=== PATIENT | male | born 1990 | race Caucasian/White ===

== ENCOUNTER → 2016-06-28 13:00 | Inpatient (IN) | payer OTHER ==
[2016-06-26 23:30] VITALS: BP 162/75
[2016-06-27] VITALS (23 sets, daily range): BP systolic 146–167; BP diastolic 60–97
--- NOTE | 2016-06-27 06:55 | DIAGNOSTIC IMAGING REPORT ---
PROCEDURE: XR CHEST 1 VIEW INDICATION: LEUKOCYTOSIS, initial encounter TECHNIQUE: Portable AP view 02:34 a.m. COMPARISON: None. FINDINGS: Lungs are clear. Heart and mediastinum are normal. Thorax is normal. IMPRESSION: 1. Negative chest.
--- NOTE | 2016-06-27 07:33 | HISTORY AND PHYSICAL ---
ADMITTED: 06/26/2016 CHIEF COMPLAINT: 1. Nausea, vomiting, abdominal pain HISTORY OF PRESENT ILLNESS: Information source, the patient himself. Reliability fair. A 26-year-old with a past medical history of type 1 diabetes on insulin therapy, history of substance abuse including heroin and marijuana, went to [facility] with a complaint of nausea, vomiting, diarrhea and abdominal pain. On arrival to hospital, he was found to have high blood sugar with the signs of diabetic ketoacidosis. Blood sugar levels were 473. Urine was positive for ketones. Anion gap was 14 which got worse over hours and his blood sugar went up to 511 and anion gap went up to 27. For that, he received IV hydration with normal saline. For nausea and vomiting, he got Zofran, Benadryl, Phenergan. For abdominal pain, he was given Dilaudid, ketorolac and Ativan. He was started on insulin drip and transferred to [facility] on the ICU for further management for non availability of beds at [facility]. In [facility], the patient continued to have abdominal pain and severe vomiting. MEDICAL/SURGICAL HISTORY: Significant for type 1 diabetes mellitus, substance abuse, including heroin and marijuana, colitis, depression, gastroesophageal reflux disease, sciatica, asthma, gastroparesis, Gilbert disease. Past surgical history: Cholecystectomy, fractured clavicle. Pts PCP: Dr. Clint Mata. MEDICATIONS: As per [facility] Emergency Department list: 1. Apidra 6 to 8 units subcutaneous before meals. 2. Lantus 40 units subcutaneous at bedtime. 3. Omeprazole 20 mg p.o. twice daily. 4. Zofran 4 mg. 5. Paroxetine 20 mg 1 tablet morning. 6. Phenergan 25 mg orally every 4 hours as needed for nausea and vomiting. 7. Ventolin HFA 90 mcg 2 puffs into mouth every 4 hours as needed. ALLERGIES: 1. METOCLOPRAMIDE. 2. PROCHLORPERAZINE. SOCIAL HISTORY: History of substance abuse. He says he injects heroin 1 to 2 grams every day and smokes marijuana. Last heroin use, yesterday morning. Marijuana, the day before yesterday. Denies smoking cigarettes. Denies alcohol use. FAMILY HISTORY: Grandmother and grandfather with history of diabetes. REVIEW OF SYSTEMS: Denies fevers, chills, sweats, weakness, malaise. Denies any pain in eyes, vision change, conjunctival inflammation, eyelid inflammation, redness. ENT: He denies any nasal discharge, nasal congestion, mouth pain, mouth swelling, throat pain, throat swelling. Denies any cough, shortness of breath, wheezing, hemoptysis, pleuritic pain. Denies any chest pain, palpitation, orthopnea, paroxysmal nocturnal dyspnea, edema. Complains of nausea, vomiting, abdominal pain, diarrhea. Denies any constipation. Denies melena, hematochezia. Denies any dysuria. Complains of urinary frequency. Denies incontinence, hematuria, or retention. Denies any back pain. Denies any weakness, numbness, change in his speech, confusion changes. PHYSICAL EXAMINATION: VITAL SIGNS: Pulse rate 109, respiratory rate 22, blood pressure 164/75, pulse oximetry 100 on room air. GENERAL: The patient is alert, awake, oriented x3, not in acute distress. HEENT: Head examination, normocephalic, atraumatic. Eyes: Pupils equal, reactive to light. Mucous membranes dry. LUNGS: Clear to auscultation. NECK: Supple. No JVD. CARDIOVASCULAR: Regular rate and rhythm. Normal S1 and S2. ABDOMEN: Soft, mildly tender. Bowel sounds present. No guarding. No rebound. No rigidity. EXTREMITIES: No edema. SKIN: No rashes. Tattoos all over the body present. No significant lesions. NEUROLOGIC: Normal exam. No lateralizing signs. LAB/IMAGING: Sodium 134, potassium 3.3, chloride 96, bicarbonate 14, BUN 24, creatinine 1.4, GFR more than 60. Glucose 326, calcium 8.2. Chemistry labs from [facility], date collected on 06/26/2016 at 6 p.m., sodium 129, potassium 4.1, chloride 88, bicarbonate 14, anion gap 27, glucose 511, BUN 22, creatinine 1.39. Liver function: Total protein 7.6, albumin 3.9, calcium 9.3, total bilirubin 1.3, alkaline phosphatase 157, ALT 17, AST 20. Blood cultures pending. Lactic acid 1.9, magnesium 1.7. Lactic acid on admission 1.9. WBC 19.7, hemoglobin 12.6, hematocrit 37, platelets 335, neutrophils 89.1%, granulocytes 0.7%, lymphocytes 5.5%, monocytes 4.4%. Imaging: Chest x-ray pending. IMPRESSION/PLAN: 1. Diabetic ketoacidosis without coma. Will start IV hydration with normal saline, additive KCL 20 mEq per 1 liter of normal saline at 250 mL per hour. Continue with insulin drip. Monitor blood sugar hourly. Monitor BMP q.6 hours. Monitor electrolytes. Replace electrolytes. Keep potassium more than 4. Keep n.p.o. Switch normal saline to D5 normal saline if blood sugar reaches to 200. Stop insulin drip once anion gap is closed. Give basal insulin 1 hour before stopping insulin drip. Control pain with Dilaudid, nausea and vomiting with Zofran and Phenergan. 2. Abdominal pain, nausea, and vomiting. IV hydration with normal saline. Zofran q.6 hourly. Phenergan p.r.n. Check lipase and amylase. Pain control with Dilaudid. 3. Substance abuse. Monitor for heroin withdrawal. Methadone 15 mg q.8 hours for now. Continue Dilaudid as needed. Ativan p.r.n. Symptomatic treatment with Zofran and Phenergan for nausea, vomiting, and abdominal pain. The patient is counseled about drug treatment program and he refuses to pursue it as he said he has failed in the past. 4. Leukocytosis. Urinalysis done at other hospital was negative for infection. Chest x-ray pending. Blood cultures pending. We will monitor for now. Check procalcitonin level. 5. Deep vein thrombosis prophylaxis. Lovenox. 6. Gastrointestinal prophylaxis. Proton pump inhibitor. 7. The patient's condition guarded and anticipated discharge in 3 to 4 days. 8. E/M coding, inpatient high, [id number].
--- NOTE | 2016-06-27 08:04 | Progress Note ---
Subjective General Note Date: June 27, 2016 Admission Date: Inderjit 2016 Hospital Day: 1 PCP: Unknown Status: Inpatient Advanced Directive: FULL CODE Room: 306 Brief History: The patient is a 26-year-old white male with a significant past medical history of type 1 diabetes mellitus, illicit drug use-heroin who presented to [facility] as a transfer from [facility] secondary to DKA, illicit drug use-heroin. Secondary to the above, the patient was admitted by Dr. Craven for further evaluation and treatment For other history present illness, past medical history, family history, social history, review of systems, and admission physical examination please see the patient's history and physical examination and ER visit note in the patient's medical record. Subjective: The patient states his status is somewhat improved. Withdrawal symptoms improved. Nausea much improved Patient requests: No specific other than adequate opiate replacement to prevent withdrawals Medications and Allergies Medications Current Medications Sig/Ehsan Start time Last Medication Dose Route Stop Time Status Admin Methadone HCl 10 MG TID 06/27 599 AC 06/27 PO 0549 Ondansetron HCl 4 MG Q6H 06/27 599 AC IV Pantoprazole Sodium 40 MG DAILY@00 06/27 0500 AC 06/27 IV 0549 Dextrose/Sodium 1,000 ML ASDIRECTED PRN 06/27 0400 AC 06/27 Chloride IV 0549 Hydromorphone HCl 1 MG Q3H PRN 06/27 0300 AC 06/27 IV 0349 Lorazepam 0.5 MG Q8H PRN 06/27 0300 AC 06/27 IV 0349 Acetaminophen 650 MG Q4H PRN 06/27 0015 AC PO Albuterol/Ipratropium 3 ML Q6H PRN 06/27 001 AC IN Docusate Sodium 250 MG BID PRN 06/27 001 AC PO Insulin Human Regular 100 UNITS ASDIRECTED 06/27 001 AC Sodium Chloride 100 ML IV Naloxone HCl 0.4 MG PRN PRN 06/27 001 AC IV Promethazine HCl See Dose Q8H 06/27 001 AC 06/27 Insts (1) IV 0102 Sodium Chloride/ 1,000 ML ASDIRECTED 06/27 14 AC 06/27 Electrolytes IV 0102 Dose Instructions: (1)Promethazine HCl: 12.5 - 25 MG Allergies Coded Allergies: Metoclopramide (Severe, 06/27/16) Prochlorperazine (From COMPAZINE) (Severe, 06/27/16) Physical Exam Vital Signs / I&Os Vital Signs Date Time Temp Pulse Resp B/P Pulse O2 O2 Flow FiO2 Ox Delivery Rate 06/27 0740 99.3 120 15 163/78 100 Room Air 06/27 0600 111 13 155/78 100 Room Air 06/27 0500 157/83 06/27 0400 103 21 160/81 100 06/27 0300 99.5 101 23 165/76 99 Room Air 06/27 0200 100 24 164/84 99 Room Air 06/27 0101 Room Air 06/27 0100 109 22 164/75 100 Room Air 06/27 0000 166/78 06/26 2330 120 14 162/75 100 Room Air I&O 06/27 0000 06/26 1600 06/26 0800 Intake Total Output Total 350 Balance -350 General Appearance Alert, Oriented X3, Cooperative, No acute distress Lungs Clear to auscultation Cardiovascular Regular rate and rhythm, Normal S1 and S2 Abdomen Normal bowel sounds, Soft, No tenderness Extremities No cyanosis, No clubbing, No edema Neurological Grossly normal Psych/Mental Status Mental status normal, Mood normal LAB Results Laboratory Tests 06/27 06/27 06/27 06/27 0530 0530 0040 K Blood Gas Sample Site RR Total CO2 (24.0 - 30.0 mmol/L) 16.8 ABG pH (7.35 - 7.45) 7.38 ABG pCO2 at Pt Temp (35 - 45 mmHg) 27.3 ABG pO2 at Pt Temp (80.0 - 100.0 mmHg) 99.2 ABG HCO3 (20.0 - 26.0 mmol/L) 16.0 ABG O2 Sat Calc/Kt (95.1 - 100.0 %) 98.8 ABG Base Excess (-6.0 - -6.0 mmol/L) -8.3 ABG Reduced Hgb (%) 1.2 ABG Carboxyhemoglobin (0.5 - 1.5 %) 1.5 ABG Methemoglobin (0.4 - 1.5 %) 0.1 Shelton Test YES Other Total Hgb (14.0 - 18.0 g/dL) 12.2 A-a O2 Gradient (7.0 - 14.0 mmHg) 19.2 Hgb O2 Saturation (95.0 - 100.0 %) 97.2 Respiration Rate (/MIN) 18 Vent Mode RA FiO2 (20 - 101 %) 21 Chemistry Plasma Sodium (136 - 145 mmol/L) 134 Plasma Potassium (3.5 - 5.1 mmol/L) 3.3 Plasma Chloride (98 - 107 mmol/L) 96 CO2 (Enzymatic) (21 - 32 mmol/L) 14 BUN (7 - 18 mg/dL) 24 Creatinine (0.6 - 1.3 mg/dL) 1.4 Est GFR ( Amer) (mL/min) >60 Est GFR (Non-Af Amer) (mL/min) >60 Glucose (70 - 110 mg/dL) 326 Plasma Calcium (8.5 - 10.1 mg/dL) 8.2 Amylase (25 - 115 U/L) 90 Lipase (73 - 393 U/L) 85 Procalcitonin Pending Microbiology Date/Time Procedure - Status Source Growth 06/27 0400 MRSA Screen - RECD NASAL Assessment and Plan Problem List 1. DKA (diabetic ketoacidoses) Plan -Status has steadily improved throughout the day. -Acidosis cleared with normal anion gap. No significant electrolyte abnormalities -Switch to subcutaneous insulin this p.m. -Advance diet as tolerated -Possible discharge in a.m. with improved status 2. Illicit drug use Status Chronic Onset Date Unknown Plan -Patient with history of heroin use 1-2 g per day -Place patient on replacement therapy in the form of methadone 20 mg by mouth every 6 hours -Referred to methadone treatment program/drug treatment program -Discharge planning contacted to a patient in locating rehabilitation program. 3. Opiate dependence Status Chronic Onset Date Unknown Plan See above Current status: Fair, improved Anticipated discharge date: Anticipated discharge in 1-2 days Anticipated discharge placement: Home with drug treatment program Patient care time: Time spent in chart review, patient interview, physical exam, CPOE, and care documentation: 25 minutes Visit to patient today: 1 Complexity of care: Moderate E&M Codes Rounding: Inpt-Moderate/[id number]
[2016-06-28] VITALS (8 sets, daily range): BP systolic 148–160; BP diastolic 78–90
[~2016-06-28] VITALS: Ht 180.3 cm; Wt 69.6 kg
--- NOTE | 2016-06-28 12:42 | Progress Note ---
Subjective General Pt. admitted with hyperglycemia iwth Hx of type I DM and heroin abuse. He has had blood sugars come down into usualy range. He feels he is doing well enough to go home. He is hoping to get into heroin Tx soon. Other ROS OK except restlessness due to heroin wikthdrawal. Physical Exam Vital Signs / I&Os Vital Signs Date Time Temp Pulse Resp B/P Pulse O2 O2 Flow FiO2 Ox Delivery Rate 06/28 1109 98.8 86 16 160/85 98 Room Air 06/28 0600 160/84 06/28 0500 88 15 148/79 98 Room Air 06/28 0400 89 21 155/81 99 06/28 0300 98.8 86 17 158/78 99 06/28 0200 72 20 157/86 98 Room Air 06/28 0100 80 14 157/90 98 06/28 0000 98.4 91 15 160/85 99 Room Air 06/27 2321 83 15 148/86 98 / 2244 Room Air 06/27 2200 79 14 148/97 97 Room Air 06/27 2100 98.4 88 21 160/84 100 Room Air 06/27 2000 98.4 71 17 156/86 100 Room Air 06/27 1911 98.4 83 21 146/76 95 Room Air 06/27 1800 98.8 82 16 158/80 98 Room Air 06/27 1700 79 16 159/75 99 Room Air 06/27 1600 92 22 149/64 98 Room Air 06/27 1500 81 23 166/82 98 Room Air 06/27 1410 98.4 94 20 161/82 100 Room Air 06/27 1300 98.2 97 12 154/60 98 Room Air I&O 06/27 0800 06/27 1600 06/28 0000 Intake Total 1000 2761 Output Total 1950 625 600 Balance -950 -625 2161 General Appearance Alert, Oriented X3, Cooperative, No acute distress HEENT Normal exam Lungs Clear to auscultation, Normal air movement Cardiovascular Regular rate and rhythm, Normal S1 and S2, No murmurs, gallops, rubs Abdomen Normal bowel sounds, Soft, No tenderness, No guarding, No rebound Extremities Normal exam Psych/Mental Status Mental status normal, Mood normal LAB Results Laboratory Tests 06/27 06/27 06/27 06/28 06/28 1327 1605 2004 0647 0647 Chemistry Plasma Sodium (136 - 145 mmol/L) 138 136 136 135 Plasma Potassium (3.5 - 5.1 mmol/L) 3.1 2.9 2.9 4.0 Plasma Chloride (98 - 107 mmol/L) 102 102 103 95 CO2 (Enzymatic) (21 - 32 mmol/L) 22 24 28 19 BUN (7 - 18 mg/dL) 14 12 10 10 Creatinine (0.6 - 1.3 mg/dL) 1.1 1.1 1.1 1.0 Est GFR ( Amer) (mL/min) >60 >60 >60 >60 Est GFR (Non-Af Amer) (mL/min) >60 >60 >60 >60 Glucose (70 - 110 mg/dL) 214 226 205 417 Hemoglobin A1c % (4.5 - 6.2 %) 10.9 Plasma Calcium (8.5 - 10.1 mg/dL) 7.7 7.6 7.6 8.0 Plasma Magnesium (1.8 - 2.4 mg/dL) 1.6 2.0 Triglycerides (30 - 200 mg/dL) 102 Cholesterol (140 - 200 mg/dL) 156 LDL Cholesterol, Calc (mg/dL) 78 HDL Cholesterol (32 - 96 mg/dL) 58 LDL/HDL Ratio 1.3 Cholesterol/HDL Ratio 2.7 Coronary Risk Interp (0.4 - 1.0) 0.6 TSH 3rd Generation (0.34 - 3.74 uIU/mL) 0.665 Hematology WBC (4.5 - 11.5 K/uL) 15.0 RBC (4.50 - 5.90 M/uL) 4.88 Hgb (13.5 - 17.5 gm/dL) 13.0 Hct (41.0 - 53.0 %) 40.7 MCV (80 - 100 fL) 84 MCH (26 - 34 pg) 27 RDW (11.6 - 14.8 %) 13.9 Neut % (Auto) (50 - 75 %) 79.7 Lymph % (Auto) (25 - 40 %) 11.5 Harmon % (Auto) (3 - 14 %) 8.7 Eos % (Auto) (0 - 4 %) 0 Baso % (Auto) (0 - 2 %) 0.1 Plt Count, EDTA (150 - 400 K/uL) 254 PUBS MCHC (31 - 37 g/dL) 32 06/28 0647 Chemistry Lactic Acid (0.4 - 2.0 mmol/L) 0.9 Assessment and Plan Problem List 1. DKA (diabetic ketoacidoses) Plan resume usual lantus dose and usual Apidra dose by sliding scale before meals 2. Opiate dependence Status Chronic Onset Date Unknown Plan Work on getting into heroin abuse Tx program. E&M Codes Discharge: Inpt >30 min spent/[id number]
[~2016-06-28 13:00] MED LIST: APIDRA1 ML SC; LANTUS SOL100 UNITS/ SC; METHADONE HCL10 MG PO; OMEPRAZOLE20 M1 PO; ONDANSETRON ODT4 MG PO; PAROXETINE HCL10 MG PO; PHENERGAN EQUIV25 MG PO; VENTOLIN IN
--- NOTE | 2016-06-28 13:01 | Provider's Discharge Care Plan ---
Problem, Goal, Plan Problem List 1. DKA (diabetic ketoacidoses) Goals: Improve disease control, Improve function, Improved health/wellness, Increase independence, Improve nutrition status Instructions: Follow up as directed, Increase activity level, Take meds as directed, Reduce stress, Take usual doses of L antus insulin and Apidra insulin. Follow consistent carbohydrate diet. insulin and 2. Opiate dependence Goals: Improve disease control, Improve function, Improved health/wellness, Increase independence, Improve nutrition status Instructions: Follow up as directed, Increase activity level, Take meds as directed, Reduce stress, Avoid heroin. [place]rage for heroin Tx program. Take methadone 20 mg every 6h until you can get in to treatment program.
--- NOTE | 2016-06-29 13:25 | DISCHARGE SUMMARY ---
ADMIT DATE: 06/26/2016 DISCHARGE DATE: 06/28/2016 ADMITTING DIAGNOSIS: 1. Diabetic ketoacidosis DISCHARGE DIAGNOSES: 1. Diabetic ketoacidosis resolving 2. Type 1 diabetes 3. Heroin abuse 4. Gastroesophageal reflux 5. Diabetic gastroparesis 6. Low-grade intermittent asthma 7. Chronic lumbar pain with sciatic nerve pain PROCEDURE: 1. Please see the history and physical examination by Dr. Craven for details concerning admission BRIEF HISTORY: The patient is a 26-year-old male who has had type 1 diabetes and is followed by Dr. Diego Mata in the [facility]. He developed poor control of his diabetes, with the precipitating cause not exactly clear, though perhaps related to viral illness with nausea, vomiting, and presented to the emergency department at [facility] in [place] with very high blood sugars, and nausea and vomiting and diarrhea. He had an anion gap, with blood sugars in the 400-500 range. He was started on an insulin infusion and hydration. Due to lack of beds at [facility], he was transferred here to [facility], and care was continued. HOSPITAL COURSE: He was able to be weaned off the insulin drip during the day on 06/27/2016. He was not markedly acidotic on blood gas check. He was started on oral feedings and did well and was maintained on his usual Lantus insulin dose and Apidra sliding scale insulin dose. He had 1 high blood sugar the following morning, early, at 470, but later in the morning it had gone down to 272 and then to 240 by noon. He felt well and was not having any nausea or vomiting and felt he would do well to be discharged. Due to critical bed shortage issues, he was felt to be doing well enough to be discharged home. He was maintained on methadone for pain control and to avoid narcotic withdrawal during this hospitalization. He is planning to try to enter a detoxification heroin abuse program as soon as possible. He is having help with his primary care doctor and parents with this. He was stable with his breathing during this hospitalization. He showed no significant abnormalities and no evidence of any obvious infection. DISPOSITION: The patient is discharged home in care of his parents. DISCHARGE MEDICATIONS/INSTRUCTIONS: Discharge medications will include continuation of Lantus insulin 40 units given every evening. He will continue with Apidra by sliding scale as recommended by his primary care physician, Dr. Mata. He will also continue omeprazole 20 mg b.i.d. to control reflux. He will continue ondansetron as needed for nausea at 4 mg every 4-6 hours. Other continued medications will include paroxetine 200 mg daily, promethazine 25 mg tablets every 4 hours p.r.n. Albuterol by metered dose inhaler 2 puffs every 4 hours for chest congestion and wheezing. He will also be given a prescription for methadone at a dose of 20 mg q.6h. to be administered by his parents for the next 36-48 hours, until he is able to make contact with his primary care physician or with a methadone treatment program. Should he have acute worsening, he will follow up with his primary care physician.
== END | disposition home or self-care (01) | DRG 638 ==
LOC: CC SRH 06-27 00:13
PROVIDERS: ADMIT Internal Medicine
DX: E10.10 Type 1 diabetes mellitus with ketoacidosis without coma (principal); F11.20 Opioid dependence, uncomplicated; E10.43 Type 1 diabetes mellitus with diabetic autonomic (poly)neuropathy; K31.84 Gastroparesis; F12.10 Cannabis abuse, uncomplicated; J45.20 Mild intermittent asthma, uncomplicated; M54.30 Sciatica, unspecified side; K21.9 Gastro-esophageal reflux disease without esophagitis; Z79.4 Long term (current) use of insulin
CPT/HCPCS: 83463; 90047; 90074; 90098; 90100; 91286; 91295; 92031; 92132; 92235; 92530; 92690; 92720; 93004; 93140; 95059; 95061